=== PATIENT | male | born 1965 | race Caucasian/White ===

== ENCOUNTER 2016-12-25 18:02 | Emergency (ER) | payer BC ==
[~2016-12-25] VITALS: Ht 172.7 cm; Wt 70.0 kg
[2016-12-25 18:03] VITALS: BP 127/80; PULSE 95; RESP 20; TEMP 98.7; O2SAT 96
--- NOTE | 2016-12-25 18:45 | PD ---
Physical Exam Date Seen by Provider: Dec 25, 2016 Time Seen by Provider: 18:43 Narrative 51 yo male here for evaluation of left ear pain and cough. Loss of hearing on the left ear. Since today. Painful. Drainage noted. Air makes it worst. No chest pain or SOB. No fevers. Vitals sign stable. Patient awaiting bed placement. Data Data Last Documented VS Vital Signs Date Time Temp Pulse Resp B/P Pulse Ox O2 Delivery O2 Flow Rate FiO2 12/25/16 18:03 98.7 95 20 127/80 96 Room Air [facility] Medical Record Reviewed: Yes Supervised Visit with MOISES: No Jimmy Brown Dec 25, 2016 18:45
[2016-12-25] MEDS ORDERED: AMOX875T PO (21:20)
[2016-12-25] MEDS ORDERED: IBUP800T23 PO (21:20)
[2016-12-25] MEDS ORDERED: CIPR0.3S2 LEFT EAR (21:20)
--- NOTE | 2016-12-25 21:20 | PD ---
HPI Chief Complaint: Cold / Flu Symptoms Time Seen by Provider: 21:13 Travel History International Travel<30 days: No Contact w/Intl Traveler<30days: No Traveled to known affect area: No History of Present Illness HPI Patient is a 51-year-old male presenting to the emergency department for evaluation of left ear pain. Patient states the pain is been ongoing for approximately one week. He states it's been draining yellow drainage for a few days. He states his symptoms started with nasal congestion and a runny nose. He reports an occasional cough but no shortness of breath, fevers, chills, nausea, vomiting, headache. He states his cold symptoms have been improving but he continues to have the ear pain. He reports pain is a 5 out of 10 and describes it as aching and throbbing. [facility] Past Medical History Medical History: Denies Significant Hx Social History Alcohol Use: No Tobacco Use: No Substance Use: No Allergies-Medications (Allergen,Severity, Reaction): Coded Allergies: No Known Allergies (Unverified , 12/25/16) Review of Systems Except as stated in HPI: all other systems reviewed are Neg General / Constitutional: No: Fever, Chills HENT: Positive: Congestion, Ear Discharge, Earache, No: Headaches, Sore Throat , Rhinitis Cardiovascular: No: Chest Pain or Discomfort Respiratory: Positive: Cough (occasional dry), No: Shortness of Breath Physical Exam Narrative GENERAL: Well-nourished, well-developed patient. SKIN: Focused skin assessment warm/dry. HEAD: Normocephalic. ENT: Mucosa pink and moist. No erythema or exudates. No uvular edema. No uvular , palatal, or tonsillar deviation. Airway patent. Nasal turbinates appear normal without nasal blood, purulent drainage or septal hematoma. EARS: Bilateral pinnae appear within normal limits. Bilateral tympanic membranes are dull, erythematous, left external ear canal is erythematous with yellow drainage noted. EYES: No scleral icterus. No injection or drainage. NECK: Supple, trachea midline. No JVD or lymphadenopathy. CARDIOVASCULAR: Regular rate and rhythm without murmurs, gallops, or rubs. RESPIRATORY: Breath sounds equal bilaterally. No accessory muscle use. GASTROINTESTINAL: Abdomen soft, non-tender, nondistended. MUSCULOSKELETAL: No cyanosis, or edema. BACK: Nontender without obvious deformity. No CVA tenderness. Data Data Last Documented VS Vital Signs Date Time Temp Pulse Resp B/P Pulse Ox O2 Delivery O2 Flow Rate FiO2 12/25/16 18:03 98.7 95 20 127/80 96 Room Air MDM Medical Decision Making Medical Screen Exam Complete: Yes Emergency Medical Condition: Yes Interpretation(s) Vital Signs Date Time Temp Pulse Resp B/P Pulse Ox O2 Delivery O2 Flow Rate FiO2 12/25/16 18:03 98.7 95 20 127/80 96 Room Air Differential Diagnosis URI versus otitis media versus otitis externa versus effusion versus other Narrative Course Patient is a 51-year-old male presenting to emergency for evaluation of left ear pain and drainage. Physical examination is consistent with otitis media with left otitis externa. Patient be given oral and topical antibiotics. He was encouraged to take ibuprofen or acetaminophen as needed and as directed for pain. He was encouraged to follow-up with his primary doctor. He was advised to return to emergency department for any new or worsening symptoms. Patient verbalizes understanding of instructions. Patient is stable for discharge. Diagnosis Primary Impression: Otitis media Qualified Code: H66.93 - Bilateral otitis media, unspecified chronicity, unspecified otitis media type Additional Impression: Otitis externa Qualified Code: H60.92 - Otitis externa of left ear, unspecified chronicity, unspecified type Referrals: [facility] Primary Care Physician Patient Instructions: General Instructions, Otitis Externa (ED), Otitis Media ( ED) Additional Instructions: Complete full course of antibiotics as prescribed Take ibuprofen as needed and as directed for pain Return to emergency department for any new or worsening symptoms Follow-up with your primary doctor or at the [facility] Med/Other Pt SpecificInfo: Prescription(s) given Scripts Ibuprofen 800 Mg [id number] Mg PO Q6HR PRN (PAIN) #40 TAB Ref 0 Prov:Amy Will 12/25/16 Ciprofloxacin Opth Drops 0.3% Soln2 Drop LEFT EAR BID #1 BOTTLE Ref 0 while awake x 5 days. Prov:Amy Will 12/25/16 Amoxicillin 875 Mg [id number] Mg PO BID 10 Days Ref 0 Prov:Amy Will 12/25/16 Disposition: 01 DISCHARGE HOME Condition: Stable Amy Will Dec 25, 2016 21:20
== END 2016-12-25 21:40 | disposition home or self-care (01) ==
LOC: NEPD 18:02
DX: H66.93 Otitis media, unspecified, bilateral (principal); H60.92 Unspecified otitis externa, left ear
CPT/HCPCS: 99284